=== PATIENT | female | born 1945 | race Caucasian/White ===

== ENCOUNTER 2019-11-06 18:52 | Emergency (ER) | payer MEDICARE ==
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
[2019-11-06 21:42] VITALS: BP 127/85
== END 2019-11-06 21:41 | disposition home or self-care (01) ==
LOC: ED 18:52
DX: M79.661 Pain in right lower leg (principal); J45.909 Unspecified asthma, uncomplicated; F41.0 Panic disorder [episodic paroxysmal anxiety]; Z90.710 Acquired absence of both cervix and uterus; Z90.89 Acquired absence of other organs; Z88.5 Allergy status to narcotic agent; Z88.8 Allergy status to other drugs, medicaments and biological substances
CPT/HCPCS: 99282

== ENCOUNTER 2024-10-02 02:03 | Observation (INO) ==
[2024-10-02] MEDS: Iodixanol 320 (CONTRAST) 100 ML SDV IV ONE (02:40)
[2024-10-02 02:43] LABS: Activated Partial Thrombo Time 24.6 seconds (26.0-38.0); INR 0.92 (0.85-1.14)
[2024-10-02 03:18] LABS: ABS Eosinophils 0.1 10^3/uL (0.0-0.5); ABS Lymphocytes 1.3 10^3/uL (1.0-4.8); ABS Monocytes 0.6 10^3/uL (0.0-0.9); ABS Neutrophils 3.4 10^3/uL (1.5-7.6); ABS Nucleated RBC 0.01 10^3/ul; Eosinophil % 1.7 %; Hematocrit 25.8 % (35-45); Hemoglobin 8.2 g/dL (11.5-14.3); Mean Platelet Volume 7.5 fL (7.5-11.2); Nucleated Red Blood Cells % 0.1 %/100WBC (0.0-0.8); Platelet Count 323 10^3/uL (150-450); Red Blood Count 3.44 10^6/uL (3.63-4.92); Red Cell Distribution Width 16.9 % (12-17); White Blood Count 5.5 10^3/uL (3.8-11.8)
[2024-10-02] MEDS ORDERED: Sulfur Hexaflouride MICROSPHR 25 MG VIAL IV PRN (03:25)
[2024-10-02 03:53] LABS: ALT 8 U/L (7-52); AST 11 U/L (13-39); Albumin 3.4 g/dL (3.5-5.7); Albumin/Globulin Ratio 1.4 (1-3); Alkaline Phosphatase 77 U/L (35-149); Anion Gap 9 mmol/L (2-16); Blood Urea Nitrogen 29 mg/dL (6-24); CO2 Carbon Dioxide 26 mmol/L (22-32); Calcium 8.4 mg/dL (8.6-10.3); Chloride 102 mmol/L (101-111); Cholesterol 172 mg/dL; Creatinine, Serum 1.25 mg/dL (0.51-0.95); Globulin 2.4 g/dL (2-4); Glucose 99 mg/dL (70-100); HDL Cholesterol 46.2 mg/dL; Indirect Bilirubin 0.2 mg/dL (0.3-1.0); LDL Cholesterol 91 mg/dL; Potassium 4.3 mmol/L (3.5-5.0); Sodium 137 mmol/L (135-145); Total Bilirubin 0.2 mg/dL (0.2-1.0); Total Protein 5.8 g/dL (6.4-8.9); Triglycerides 175 mg/dL; eGFR CKD-EPI 44.7 (>60)
[2024-10-02] MEDS: Enoxaparin 40 MG/0.4 ML SYR SUBCUT SCH (06:23)
[2024-10-02 06:29] LABS: % Iron Saturation 5 % (15-55); .Transferrin 280 mg/dL (203-362); Iron < 20 ug/dL (50-212); Total Iron Binding Capacity 392 mcg/dL (250-450); Unsaturated Iron Binding 372 ug/dL
[2024-10-02 07:20] LABS: Ferritin 4.2 ng/mL (11-307)
[2024-10-02] MEDS: NS 0.9% 1000 ml BAG 1,000 ML IV SCH (16:58)
[2024-10-02] MEDS: Iron Sucrose 200 MG in NS 0.9% 100 ml BAG 100 ML IVPB ONE (17:42)
[2024-10-02] MEDS: Venlafaxine XR 75 mg PO SCH (20:01)
[2024-10-03] MEDS: COVID VAC 24-25 (12+) (Moderna) Syringe 0.5 mL IM ONE (09:19)
[2024-10-03] MEDS: Iron Sucrose 200 MG in NS 0.9% 100 ml BAG 100 ML IVPB SCH (13:40)
[2024-10-03 17:26] LABS: Hematocrit 24.2 % (35-45); Hemoglobin 7.6 g/dL (11.5-14.3); Mean Corpuscular Hemoglobin 23.3 pg (27-33); Mean Corpuscular Hgb Conc 31.3 g/dL (31-36); Mean Corpuscular Volume 74.5 fL (80-97); Mean Platelet Volume 7.7 fL (7.5-11.2); Platelet Count 267 10^3/uL (150-450); Red Blood Count 3.25 10^6/uL (3.63-4.92); Red Cell Distribution Width 16.3 % (12-17); White Blood Count 3.6 10^3/uL (3.8-11.8)
[2024-10-03 17:52] LABS: ABS Eosinophils 0.1 10^3/uL (0.0-0.5); ABS Lymphocytes 0.7 10^3/uL (1.0-4.8); ABS Monocytes 0.6 10^3/uL (0.0-0.9); ABS Neutrophils 2.2 10^3/uL (1.5-7.6); Anisocytosis 1+; Eosinophil % 1.7 %; Hypochromasia 1+; Lymphocyte % 20.5 %; Microcytosis 2+; Nucleated Red Blood Cells % 0.1 %/100WBC (0.0-0.8); Polychromasia 1+
[2024-10-04 06:08] LABS: Hematocrit 23.4 % (35-45); Hemoglobin 7.4 g/dL (11.5-14.3); Mean Corpuscular Hemoglobin 23.7 pg (27-33); Mean Corpuscular Hgb Conc 31.7 g/dL (31-36); Mean Corpuscular Volume 74.7 fL (80-97); Mean Platelet Volume 7.5 fL (7.5-11.2); Platelet Count 261 10^3/uL (150-450); Red Blood Count 3.14 10^6/uL (3.63-4.92); Red Cell Distribution Width 16.4 % (12-17); White Blood Count 3.8 10^3/uL (3.8-11.8)
[2024-10-04 06:24] LABS: Calcium 8.9 mg/dL (8.6-10.3); Creatinine, Serum 1.18 mg/dL (0.51-0.95); Potassium 4.2 mmol/L (3.5-5.0); eGFR CKD-EPI 47.9 (>60)
[2024-10-04 08:51] LABS: Magnesium 1.9 mg/dL (1.9-2.7)
[2024-10-04] MEDS: Ferric Gluconate IV 250 MG in NS 0.9% 250 ml 200 ML IVPB SCH (09:20)
[2024-10-04] MEDS ORDERED: Lorazepam PYXIS KEY PRN (15:58)
[2024-10-04] MEDS: LORazepam 2 mg VIAL 1 ml IV PUSH ONE (20:03)
[2024-10-04] MEDS: Pantoprazole VIAL 40 MG VIAL IV SCH (20:03)
[2024-10-05 03:49] LABS: Urine Appearance Clear; Urine Bilirubin Negative (Negative); Urine Blood Negative (Negative); Urine Color Light-Yellow; Urine Glucose Negative (Negative); Urine Ketones Negative (Negative); Urine Nitrite Negative (Negative); Urine Protein Trace (Negative); Urine Specific Gravity 1.022 (1.002-1.030); Urine Urobilinogen Negative (Negative)
[2024-10-05 05:45] LABS: ABS Eosinophils 0.1 10^3/uL (0.0-0.5); ABS Monocytes 0.8 10^3/uL (0.0-0.9); ABS Neutrophils 3.1 10^3/uL (1.5-7.6); ABS Nucleated RBC 0.01 10^3/ul; Eosinophil % 1.4 %; Hematocrit 23.1 % (35-45); Hemoglobin 7.5 g/dL (11.5-14.3); Lymphocyte % 19.4 %; Mean Corpuscular Hemoglobin 24.3 pg (27-33); Mean Corpuscular Hgb Conc 32.3 g/dL (31-36); Mean Corpuscular Volume 75.3 fL (80-97); Nucleated Red Blood Cells % 0.2 %/100WBC (0.0-0.8); Platelet Count 255 10^3/uL (150-450); Red Blood Count 3.06 10^6/uL (3.63-4.92); Red Cell Distribution Width 16.7 % (12-17); White Blood Count 4.9 10^3/uL (3.8-11.8)
[2024-10-05 06:07] LABS: Calcium 8.3 mg/dL (8.6-10.3); Creatinine, Serum 1.28 mg/dL (0.51-0.95); Magnesium 1.8 mg/dL (1.9-2.7); Potassium 4.2 mmol/L (3.5-5.0); eGFR CKD-EPI 43.4 (>60)
[2024-10-05] MEDS: Magnesium Sulfate 2 gm BAG 2 GM/50 ML BAG IVPB ONE (11:32)
[2024-10-05 13:18] VITALS: BP 138/62
== END 2024-10-05 15:32 | disposition home or self-care (01) ==
LOC: ED 02:03 → EDHOLD 02:03 → SUATTDRO 03:25 → MED 08:52
PROVIDERS: ADMIT Internal Medicine; ATTEND Student in an Organized Health Care Education/Training Program